=== PATIENT | female | born 1960 | race Caucasian/White ===

== ENCOUNTER 2023-01-29 08:36 | Emergency (ER) | payer OTHER, SELFPAY ==
--- NOTE | ~2023-01-29 | XR_ITS ---
EXAMINATION: XR RIBS, LEFT CLINICAL INFORMATION: Fall COMPARISON: No prior exam available. TECHNIQUE: Chest frontal, 3 views left RIBS obliques. FINDINGS: RIBS: Skeletal structures are normal. LUNGS AND IRENE: Both lungs are clear. PLEURA: Normal. Costophrenic angles are sharp, no pneumothorax. HEART: The heart is normal in size. MEDIASTINUM: The mediastinum is within normal limits.. XR/XR ribs LT min 3V w CXR1V IMPRESSION: 1. No radiographic evidence of rib fracture. 2. No radiographic evidence of acute cardiopulmonary disease.
--- NOTE | ~2023-01-29 | CT_ITS ---
EXAMINATION: CT CERVICAL SPINE WITHOUT CONTRAST CLINICAL INFORMATION: Status post fall, head strike, anticoagulation use. COMPARISON: None available. TECHNIQUE: Multiple axial images of the cervical spine were obtained without the administration of intravenous contrast. Coronal and sagittal reformatted images were obtained. This CT examination was performed using dose optimization techniques as appropriate, variously including the following: *Automated exposure control *Adjustment of mA and/or kV according to patient size (this includes techniques or standardized protocols for targeted exams where dose is matched to indication/reason for exam; i.e. extremities or head) *Use of iterative reconstruction technique DLP: 402.12 mGy-cm FINDINGS: There is normal cervical lordosis and spinal alignment. Mild to moderate multilevel degenerative disc disease is seen most pronounced at C5-6 and C6-7 with disc space narrowing, marginal osteophyte formation and mild bilateral neural foraminal narrowing. The odontoid process is intact. Moderate odontoid articulating degenerative changes are seen. The facet joints are unremarkable. The spinous and transverse processes are intact. The cervical soft tissues are unremarkable. There is no lymphadenopathy. The thyroid gland is unremarkable. The visualized lung apices are unremarkable. CT/CT cervical spine wo IV con IMPRESSION: Mild to moderate multilevel degenerative changes without acute abnormality.
--- NOTE | ~2023-01-29 | XR_ITS ---
EXAMINATION: XR KNEE, LEFT CLINICAL INFORMATION: Fall COMPARISON: None available. TECHNIQUE: Four views of the left knee. FINDINGS: Bones and soft tissues are normal. No fracture or joint effusion. Alignment is anatomic. Joint spaces are well maintained. No abnormal soft tissue calcification. XR/XR knee LT 4V IMPRESSION: No radiographic evidence of acute fracture.
--- NOTE | ~2023-01-29 | CT_ITS ---
EXAMINATION: CT HEAD WITHOUT CONTRAST CLINICAL INFORMATION: Status post fall with head strike, anticoagulation use. COMPARISON: None available. TECHNIQUE: Contiguous axial imaging was performed from the skull base to vertex without intravenous administration of contrast. Coronal and sagittal reformatted images were obtained. This CT examination was performed using dose optimization techniques as appropriate, variously including the following: *Automated exposure control *Adjustment of mA and/or kV according to patient size (this includes techniques or standardized protocols for targeted exams where dose is matched to indication/reason for exam; i.e. extremities or head) *Use of iterative reconstruction technique DLP: 692.94 mGy-cm FINDINGS: The cortical sulci are normal. The lateral ventricles are symmetrical. The third and fourth ventricles are in their normal midline position. The basilar and prepontine cisterns are unremarkable. There is no acute intra or extracerebral abnormality. There is no mass effect or midline shift. Small right frontoparietal subgaleal hematomas with subcutaneous hemorrhagic components are seen without underlying abnormality. Sections through the bony calvarium are unremarkable. The paranasal sinuses are clear. The bony orbits and orbital contents are unremarkable. CT/CT head/brain wo IV con IMPRESSION: 1. No acute intracranial pathology. 2. Small right frontoparietal subgaleal hematomas with subcutaneous hemorrhagic components without acute underlying abnormality. Correlate with physical exam.
[2023-01-29 08:45] VITALS: BP 182/106; PULSE 81; RESP 19; TEMP 36.6; O2SAT 98; BMI 31.9
--- NOTE | 2023-01-29 08:58 | ED_ITS ---
HPI - General Adult General Chief complaint: Fall Stated complaint: Head Arm L Side Pain S/P Fall 01/28/23 Time Seen by Provider: 01/29/23 08:57 Source: patient Mode of arrival: ambulatory Limitations: no limitations History of Present Illness HPI narrative: Patient is a 62 year old assigned female at with a history of DVT and HTN presenting to the emergency department today with a headache, left rib pain, and left knee pain. Patient states that she had a mechanical fall and is now having a headache, left knee pain, and left chest wall pain. Patient states that she is on an anti-coagulant medication. Patient denies any loss of consciousness from the incident. Patient denies any dizziness, lightheadedness, abdominal pain, nausea, vomiting, fever, chills, blurry vision, double vision, loss of vision, chest pain, difficulty breathing, shortness of breath, back pain, night sweats, pain with urination, increased urinary frequency, increased urinary urgency, blood in her urine or stool, syncope or a near syncopal episode, bowel incontinence, bladder incontinence, bowel retention, bladder retention, or any other complaints at this time. Onset (ago): hour(s) Severity: mild Severity scale (1-10): 3 Relieving factors: none Exacerbating factors: none Associated symptoms: denies other symptoms Treatments prior to arrival: none Related Data Home Medications Medication Instructions Recorded Confirmed calcium 500 mg tablet 500 mg PO DAILY 09/12/21 10/12/22 cholecalciferol (vitamin D3) 50 50 mcg PO DAILY 09/12/21 10/12/22 mcg (2,000 unit) capsule (Vitamin D3) garlic 400 mg tablet,delayed 400 mg PO DAILY 09/12/21 10/12/22 release lactobacillus combination no.4 3 3,000 mmu cells PO DAILY 09/12/21 10/12/22 billion cell capsule (Probiotic) magnesium 250 mg tablet 250 mg PO DAILY 09/12/21 10/12/22 omega-3 fatty acids-vitamin E 1 cap PO DAILY 09/12/21 10/12/22 1,000 mg capsule Previous Rx's Medication Instructions Recorded rivaroxaban 10 mg tablet (Xarelto) 1 tab PO DAILY #90 tabs 01/02/22 Allergies Allergy/AdvReac Type Severity Reaction Status Date / Time tordol Allergy Unknown dizziness, Uncoded 09/12/21 08:56 sweats, nausea, heartburn Review of Systems Constitutional: Constitutional: Reports no additional constitutional complaints, Denies chills, Denies fever(s), Reports headache(s) and Denies night sweats Eyes: Eyes: Reports no additional eye complaints, Denies blurry vision, Denies change in vision, Denies diplopia, Denies eye discharge, Denies loss of vision and Denies eye pain ENT: Denies dizziness and Reports headache(s) Cardiovascular: Cardiovascular: Reports no additional cardiovascular complaints, Denies chest pain, Denies lightheadedness, Denies Loss of Consciousness and Denies dyspnea Respiratory: Respiratory: Reports no additional respiratory complaints and Denies dyspnea Gastrointestinal: Gastrointestinal: Reports no additional gastrointestinal complaints, Denies abdominal pain, Denies melena, Denies hematochezia, Denies change in bowel habits and Denies change in stool character Genitourinary: Genitourinary: Denies hematuria, Denies urinary frequency, Denies dysuria, Denies urinary incontinence, Denies urinary hesitancy and Denies urinary urgency Musculoskeletal: Musculoskeletal: Reports no additional musculoskeletal complaints, Denies numbness and Denies tingling Comments: left knee pain, left rib pain Neurologic: Denies dizziness, Reports headache(s), Denies loss of vision, Denies numbness and Denies tingling Psychiatric: Psychiatric: Reports no additional psychiatric complaints Endocrine: Endocrine: Reports no additional endocrine complaints Hematologic/Lymphatic: Hematologic/Lymphatic: Reports no additional hematologic/lymphatic complaints Allergic/Immunologic: Allergic/Immunologic: Reports no additional allergic/immunologic complaints [facility] Past Medical History Attestation statement: The following information was validated with the patient. Source: old records reviewed and nursing notes reviewed Medical History Asthma Diverticulosis Hx of bronchitis Hx pulmonary embolism Surgical History Hx of appendectomy Hx of tonsillectomy Family History Family History Sister Leiomyosarcoma Social History Social History Household Members: None Housing: Condominium Are you a primary inpatient care manager rn to a significant other at home: No Do you presently have visiting nurse or other home services: No Alcohol intake: current Alcohol intake frequency: a few times a week Alcohol type: wine Patient Tobacco Use Status: Former Tobacco user Quit Date: 2011 Tobacco use type: Cigarette Cigarette Packs Per Day: 1 Smoked in Last 30 Days: No Use of substances other than those prescribed or required for medical reasons: Yes Substance Use Type: Marijuana Substance Use Frequency: Weekly Last Used Substance: Days (ago) Any prior treatment program specific to substance use: No Advance Directives: No Advance Directives Information Provided: Yes Patient : No service: No Current occupational status: employed Current occupation: Care Navigator Current occupational exposures/hazards: No Physical Exam ED Vital Signs: Vital Signs - 24 hr 01/29/23 08:45 01/29/23 09:32 01/29/23 11:55 Temperature 98 F 97.6 F 97.8 F Pulse Rate 81 75 71 Respiratory Rate 19 18 14 Blood Pressure 182/106 H 182/96 H 192/104 H Pulse Oximetry 98 95 95 Oxygen Delivery Method Room Air Room Air Room Air BMI result Body Mass Index 31.9 Const General: cooperative, no acute distress, alert and awake Nutritional Appearance: well nourished Orientation/consciousness: patient oriented x3 Limitations: no limitations HENMT Head: Yes normal to inspection and Yes atraumatic Ears: hearing grossly normal bilaterally and external ears normal General nose exam: Normal external nose present, no nasal discharge noted and no epistaxis Face and sinus: Yes normal facial exam, No abrasion and No laceration Mouth: Normal oral and palatal mucosa present, no drooling and no muffled voice Eyes General: appearance normal, both eyes and all related structures Periorbital: periorbital findings normal Eyelids: Yes eyelids normal Conjunctivae: conjunctivae normal Pupils: Equal, round and reactive pupils present EOM: EOMs intact bilaterally Neck Neck: Yes normal visual inspection, Yes full ROM and Yes no lymphadenopathy Chest Chest palpation & inspection: normal inspection of the chest Resp Effort & Inspection: normal respiratory effort and able to speak in complete sentences GI Inspection: Yes normal to inspection Neuro General: patient oriented x3 and moves all extremities Cranial nerves: Yes Equal, round and reactive pupils present Cognition (Neuro): normal cognition Motor exam (neuro): 5/5 motor strength present throughout Sensory Exam: Normal double simultaneous stimulation for sensation Coordination: [id number] test normal Extrem General: Yes normal to inspection, Yes full ROM and Yes capillary refill normal Psych Appearance: grossly normal Mental Status: mental status grossly normal Affect: normal affect Attitude: cooperative Thought process: Normal thought process present Thought content: Normal thought content present Insight: Good insight present (Psych) Medications Administered Discontinued Medications Generic Name Dose Route Start Last Admin Trade Name Freq PRN Reason Stop Dose Admin Diphtheria/Tetanus/Acell Pertussis 0.5 ml 01/29/23 09:13 01/29/23 09:44 Diphth,Pertus(Acell),Tet Adult 0.5 Ml Syringe IM 01/29/23 09:14 Not Given .ONCE ONE Medical Decision Making Medical Decision Making MDM Narrative: Patient is a 62 year old assigned female at with a history of DVT and HTN presenting to the emergency department today with left knee pain, left chest wall pain, and a headache. Patient's physical exam was unremarkable. Patient's left knee and left chest/ribs x-rays showed no acute process. Patient's c-spine CT was negative for any acute process. Patient's head CT showed a small right frontoparietal subgaleal hematoma but was otherwise unremarkable. Patient was hypertensive during her time in the department. Patient's clinical presentation is most consistent with mechanical fall and not hypertensive urgency or emergency. I explained my physical exam findings as well as all test results to the patient. I answered all questions asked by the patient. I stressed the importance of the patient taking her medication as prescribed. I stressed the im portance of the patient following up with her primary care provider. I stressed the importance of the patient returning to the emergency department immediately if her symptoms were to worsen or if she were to develop any dizziness, shortness of breath, difficulty breathing, chest pain, blurry vision, loss of vision, nausea, vomiting, abdominal pain, fever, chills, back pain, or any other complaints. Patient verbalized agreement and understanding with this treatment plan and discharge. Differential Diagnosis Differential Diagnoses: The differential diagnosis associated with the presentation includes mechanical fall headache left knee pain left rib pain left chest wall pain subgaleal hematoma subdural hematoma - ruled out on head CT epidural hematoma - ruled out on head CT cervical fracture - ruled out on c-spine CT Admission/Observation Consideration of admission/observation: Escalation of care including admission/observation considered Patient would have been admitted to the hospital had her work up had any findings where hospital admission was appropriate and her clinical presentation warranted hospital admission. Independent Interpretation I performed an independent interpretation of an: Plain X-Ray and CT Scan Interpretation: My interpretation is in agreement with the radiologist's impression of these imaging studies. --- EXAMINATION: XR KNEE, LEFT CLINICAL INFORMATION: Fall? COMPARISON: None available.? TECHNIQUE: Four views of the left knee. FINDINGS: Bones and soft tissues are normal. No fracture or joint effusion. Alignment is anatomic. Joint spaces are well maintained. No abnormal soft tissue calcification.? XR/XR knee LT 4V IMPRESSION: No radiographic evidence of acute fracture. Dictated By: Oswaldo Reyes MD Signed By: Electronically signed by Oswaldo Reyes MD 01/29/23 1143 EXAMINATION: XR RIBS, LEFT CLINICAL INFORMATION:? Fall COMPARISON: No prior exam available. TECHNIQUE: Chest frontal, 3 views left RIBS obliques. FINDINGS: RIBS: Skeletal structures are normal. LUNGS AND IRENE: Both lungs are clear. PLEURA: Normal. Costophrenic angles are sharp, no pneumothorax. HEART: The heart is normal in size. MEDIASTINUM: The mediastinum is within normal limits.. XR/XR ribs LT min 3V w CXR1V IMPRESSION: 1. No radiographic evidence of rib fracture. ? 2. No radiographic evidence of acute cardiopulmonary disease. Dictated By: Oswaldo Reyes MD Signed By: Electronically signed by Oswaldo Reyes MD 01/29/23 1146 EXAMINATION: CT CERVICAL SPINE WITHOUT CONTRAST CLINICAL INFORMATION: Status post fall, head strike, anticoagulation use.? COMPARISON: None available. TECHNIQUE: Multiple axial images of the cervical spine were obtained without the administration of intravenous contrast. Coronal and sagittal reformatted images were obtained. This CT examination was performed using dose optimization techniques as appropriate, variously including the following: *Automated exposure control *Adjustment of mA and/or kV according to patient size (this includes techniques or standardized protocols for targeted exams where dose is matched to indication/reason for exam; i.e. extremities or head) *Use of iterative reconstruction technique DLP: 402.12 mGy-cm FINDINGS: There is normal cervical lordosis and spinal alignment. Mild to moderate multilevel degenerative disc disease is seen most pronounced at C5-6 and C6-7 with disc space narrowing, marginal osteophyte formation and mild bilateral neural foraminal narrowing. The odontoid process is intact. Moderate odontoid articulating degenerative changes are seen. The facet joints are unremarkable. The spinous and transverse processes are intact. The cervical soft tissues are unremarkable. There is no lymphadenopathy. The thyroid gland is unremarkable. The visualized lung apices are unremarkable.? CT/CT cervical spine wo IV con IMPRESSION: Mild to moderate multilevel degenerative changes without acute abnormality. Dictated By: Cody Hernández MD Signed By: Electronically signed by Cody Hernández MD 01/29/23 1137 EXAMINATION: CT HEAD WITHOUT CONTRAST CLINICAL INFORMATION: Status post fall with head strike, anticoagulation use.? COMPARISON: None available. TECHNIQUE: Contiguous axial imaging was performed from the skull base to vertex without intravenous administration of contrast. Coronal and sagittal reformatted images were obtained. This CT examination was performed using dose optimization techniques as appropriate, variously including the following: *Automated exposure control *Adjustment of mA and/or kV according to patient size (this includes techniques or standardized protocols for targeted exams where dose is matched to indication/reason for exam; i.e. extremities or head) *Use of iterative reconstruction technique DLP: 692.94 mGy-cm FINDINGS: The cortical sulci are normal. The lateral ventricles are symmetrical. The third and fourth ventricles are in their normal midline position. The basilar and prepontine cisterns are unremarkable. There is no acute intra or extracerebral abnormality. There is no mass effect or midline shift. Small right frontoparietal subgaleal hematomas with subcutaneous hemorrhagic components are seen without underlying abnormality. Sections through the bony calvarium are unremarkable. The paranasal sinuses are clear. The bony orbits and orbital contents are unremarkable. CT/CT head/brain wo IV con IMPRESSION: 1.? No acute intracranial pathology. 2.? Small right frontoparietal subgaleal hematomas with subcutaneous hemorrhagic components without acute underlying abnormality. Correlate with physical exam. Dictated By: Cody Hernández MD Signed By: Electronically signed by Cody Hernández MD 01/29/23 1151 Radiology Impression Discussion of test interpretation with radiology: I have reviewed the radiologist's reading. Chronic Conditions Patient?s care impacted by: Hypertension Discharge Plan Discharge Clinical Impression: Subgaleal hemorrhage, Fall Patient Disposition: Home, Self-Care Instructions: Fall Prevention for Older Adults (ED) Additional Instructions: Follow up with your primary care provider. Return to the emergency department immediately if your symptoms worsen or if you develop any dizziness, shortness of breath, difficulty breathing, chest pain, blurry vision, loss of vision, nausea, vomiting, abdominal pain, fever, chills, back pain, or any other complaints. Prescriptions: No Action Garlique 400 mg Tablet,Delayed Release (Dr/Ec) 400 mg PO DAILY calcium 500 mg Tablet 500 mg PO DAILY magnesium 250 mg Tablet 250 mg PO DAILY Fish Oil 1,000 mg Capsule 1 cap PO DAILY cholecalciferol (vitamin D3) [Vitamin D3] 50 mcg (2,000 unit) Capsule 50 mcg PO DAILY Probiotic 3 billion cell Capsule 3,000 mmu cells PO DAILY Rx Instructions: administer with a meal Xarelto 10 mg tablet 1 tab PO DAILY Qty: 90 3RF Referrals: [facility] – [place] Family Medicine [Provider Group] (Call to establish and follow up with a primary care provider. If you already have a primary care provider, please follow up with them.) [facility] [place] Primary Care, [place] [Provider Group] (Call to establish and follow up with a primary care provider. If you already have a primary care provider, please follow up with them.) [facility] [place] Primary Care,Brian [Provider Group] (Call to establish and follow up with a primary care provider. If you already have a primary care provider, please follow up with them.) Stand Alone Forms: Work/School Release Interventions: ED Discharge Assessment Last Done: 01/29/23 12:30 Discharge Date/Time: 01/29/23 12:32 Print Language: Bahraini
[2023-01-29 09:32] VITALS: BP 182/96; PULSE 75; RESP 18; TEMP 36.4; O2SAT 95
[2023-01-29 11:55] VITALS: BP 192/104; PULSE 71; RESP 14; TEMP 36.6; O2SAT 95
== END 2023-01-29 12:32 | disposition home or self-care (01) ==
PROVIDERS: Emergency Provider Emergency Medicine
DX: S09.90XA Unspecified injury of head, initial encounter (principal); R51.9 Headache, unspecified; R07.81 Pleurodynia; M54.2 Cervicalgia; M25.562 Pain in left knee; W01.0XXA Fall on same level from slipping, tripping and stumbling without subsequent striking against object, initial encounter; Y93.9 Activity, unspecified; Y92.9 Unspecified place or not applicable; Y99.9 Unspecified external cause status; Z79.899 Other long term (current) drug therapy; Z87.891 Personal history of nicotine dependence; Z86.718 Personal history of other venous thrombosis and embolism; Z79.01 Long term (current) use of anticoagulants
CPT/HCPCS: 70450; 71101; 72125; 73564; 99284